=== PATIENT | female | born 1975 | race African-American/Black ===

== ENCOUNTER → 2021-01-23 08:49 | Outpatient (CLI) | payer OTHER, SELFPAY ==
--- NOTE | ~2021-01-23 | MR_ITS ---
EXAMINATION: MR shoulder LT wo con DATE: 01/23/2021 09:27 INDICATION: Left shoulder pain TECHNIQUE: Magnetic resonance imaging (MRI) of the left shoulder was performed without intravenous co ntrast. Sequences included axial PD-weighted FS FSE, coronal oblique PD-weighted FS FSE, coronal obli que T2-weighted FS FSE, sagittal PD-weighted FS FSE, and sagittal T1-weighted SE. COMPARISON: None. FINDINGS: Coracoacromial arch: The acromion undersurface is curved in morphology (type II). The coracoacromial ligament is normal. A cromioclavicular joint is normal. Rotator cuff: The supraspinatus, infraspinatus and teres minor tendons are normal. The subscapularis tendon is norm al. Normal rotator cuff muscle bulk and signal. Biceps tendon, glenoid labrum and glenohumeral cartilage: Long head of the biceps tendon is normal. Subtle linear increased signal extending laterally into the substance of the 11:00-12:00 position of the superior glenoid labrum consistent with labral tear. Re mainder of the labrum appears normal. Glenohumeral cartilage is normal. Fluid: Physiologic amount of fluid in the glenohumeral joint and biceps tendon sheath. No loose osteochondra l bodies. No abnormal fluid signal in the subacromial/subdeltoid bursa to suggest bursitis. Bones: Normal marrow signal with no edema, fracture or abnormal marrow replacing process. IMPRESSION: 1. Small SLAP tear at the superior glenoid labrum. Otherwise normal left shoulder MRI. Reviewed, dictated and finalized at location A. IMPRESSION: 1. Small SLAP tear at the superior glenoid labrum. Otherwise normal left should er MRI.
== END ==
PROVIDERS: PCP Internal Medicine; Visit Provider Nurse Practitioner
DX: S43.432A Superior glenoid labrum lesion of left shoulder, initial encounter (principal)
CPT/HCPCS: 73221

== ENCOUNTER 2021-02-23 12:19 | Emergency (ER) | payer OTHER, SELFPAY ==
[2021-02-23 12:42] VITALS: BP 146/86; PULSE 55; RESP 18; TEMP 36.9; O2SAT 100
[2021-02-23 13:16] LABS: Basophils Percent Auto 0.2 % (0.2-1.2); Eosinophils Absolute Auto 0.2 K/mm3 (0-0.3); Eosinophils Percent Auto 1.4 % (0-4.4); Hematocrit 35.6 % (37.0-47.0); Hemoglobin 11.7 g/dL (12.0-15.0); Immature Granulocyte Absolute 0.09 K/mm3 (0.00-0.031); Immature Granulocyte Percent A 0.8 % (0-0.5); Lymphocytes Percent Auto 19.3 % (18.3-44.2); Mean Corpuscular HGB Conc 32.9 g/dl (32-36); Mean Corpuscular Hemoglobin 31.5 pg (26-34); Mean Platelet Volume 8.6 fl (7.4-10.4); Monocytes Absolute Auto 0.7 K/mm3 (0.1-0.6); Monocytes Percent Auto 6.3 % (2.6-8.5); Neutrophils Absolute Auto 7.8 K/mm3 (1.3-6.7); Platelet Count Result 382 k/mm3 (150-375); Red Blood Count 3.71 M/mm3 (4.2-5.4); Red Cell Distribution Width 13.2 % (11.5-14.5); White Blood Count 10.9 K/mm3 (4.5-10.0)
[2021-02-23 13:23] LABS: Alanine Aminotransferase 13 U/L (4-35); Alkaline Phosphatase 53 U/L (38-126); Anion Gap 3 mmol/L (8-16); Aspartate Amino Transferase 22 U/L (14-36); Bilirubin,Total 0.3 mg/dL (0.2-1.3); Blood Urea Nitrogen 14 mg/dL (7-17); Calcium 9.1 mg/dL (8.4-10.2); Carbon Dioxide 27 mmol/L (22-30); Chloride 105 mmol/L (98-107); Estimated CRCL calculation 84 ml/min; Estimated Glomerular Filt Rate > 60; Glucose 101 mg/dL (65-105); Lipase 156 U/L (23-300); Potassium 4.1 mmol/L (3.4-5.0); Sodium 135 mmol/L (137-145)
[2021-02-23 13:55] LABS: Add Urine Microscopic? YES; Appearance Urine Cloudy (Clear); Bacteria Urine Trace /hpf; Bilirubin Urine Negative (Negative); Blood Urine 1+ (Negative); Color Urine Yellow (Yellow); Glucose Urine UA Negative (Negative); Ketones Urine Negative (Negative); Leukocyte Esterase Ur Trace LEU/UL (Negative); Mucus Urine Few /lpf; Nitrate Urine Negative (Negative); Protein Urine Negative (Negative); Specific Grav Ur 1.027 (1.001-1.035); Squamous Epithelial Cell Urine Moderate /hpf (Few)
--- NOTE | 2021-02-23 13:56 | PC.NURSE ---
pt. to room; didnt want to change into gown; requested she change and rational explained. Pt. responded Brett Linares
== END 2021-02-23 19:10 | disposition left against medical advice (07) ==
PROVIDERS: Emergency Provider Emergency Medicine; PCP Internal Medicine
DX: R10.9 Unspecified abdominal pain (principal)
CPT/HCPCS: 36415; 80053; 81001; 81025; 83690; 85025; 99199

== ENCOUNTER 2021-04-24 07:42 | Outpatient (CLI) | payer OTHER, SELFPAY ==
--- NOTE | ~2021-04-24 | MM_ITS ---
EXAMINATION: MM screening emil BI w melody HISTORY: Screening mammogram TECHNIQUE: Craniocaudal and mediolateral oblique 3-D tomosynthesis images were obtained and synthetic 2-D images were generated. CAD analysis was submitted and interpreted. COMPARISON: No prior mammogram is available for comparison at this institution. BREAST PARENCHYMAL COMPOSITION: The breasts are heterogeneously dense, which may obscure small masses . FINDINGS: Subtle grouped microcalcifications are noted in the upper outer quadrant of the right breas t, possibly arterial. Circumscribed 4.5 x 5.9 mm opacity in the right axillary tail, likely an intramammary lymph node; con ed compression views and targeted ultrasound are recommended. Diagnostic right mammogram with magnification views is recommended for better definition. Otherwise there is no evidence of suspicious mass, calcification, or architectural distortion to sugg est malignancy in either breast.. IMPRESSION: 1. Possible arterial calcifications and axillary tail node, upper outer quadrant right breast 2. Diagnostic right mammogram with magnification views is recommended, in addition to targeted right breast ultrasound BI-RADS Category 0: Incomplete: Needs additional imaging evaluation. Reviewed, dictated and finalized at location A. IMPRESSION: 1. Possible arterial calcifications and axillary tail node, upper outer quadran t right breast 2. Diagnostic right mammogram with magnification views is recommended, in addit ion to targeted right breast ultrasound BI-RADS Category 0: Incomplete: Needs additional imaging evaluation.
== END 2021-04-24 07:43 | disposition home or self-care (01) ==
LOC: ANHIMG 07:46
PROVIDERS: PCP Internal Medicine; Visit Provider Nurse Practitioner
DX: Z12.31 Encounter for screening mammogram for malignant neoplasm of breast (principal); R92.8 Other abnormal and inconclusive findings on diagnostic imaging of breast
CPT/HCPCS: 77063; 77067

== ENCOUNTER 2021-05-17 10:29 | Outpatient (CLI) | payer OTHER, SELFPAY ==
--- NOTE | ~2021-05-17 | MMUS_ITS ---
EXAMINATION: MM diagnostic mammo unilat RT, US breast RT limited HISTORY: Indeterminate right breast mass and calcifications on screening mammogram TECHNIQUE: Additional 3-D tomosynthesis images of the right breast were performed and synthetic 2-D i mages were generated. Magnification views are also obtained. CAD analysis was submitted and interpret ed. High resolution limited right breast ultrasound was performed. COMPARISON: 04/24/2021 FINDINGS: MAMMOGRAPHIC FINDINGS: The right breast calcifications on screening mammogram are consistent with vascular calcifications. A 7 mm oval, circumscribed mass is present in the posterior third far upper outer quadrant of the [address]. ULTRASOUND: There is an intramammary lymph node in the upper outer quadrant of the breast corresponding to the ma mmographic finding in question. IMPRESSION: 1. No mammographic or sonographic evidence of malignancy. 2. Recommend routine screening mammography in one year. BI-RADS Category 2: Benign finding(s). Reviewed, dictated and finalized at location A. IMPRESSION: 1. No mammographic or sonographic evidence of malignancy. 2. Recommend routine screening mammography in one year. BI-RADS Category 2: Benign finding(s).
== END 2021-05-17 10:30 | disposition home or self-care (01) ==
LOC: ANHIMG 10:30
PROVIDERS: PCP Internal Medicine; Visit Provider Nurse Practitioner
DX: R92.8 Other abnormal and inconclusive findings on diagnostic imaging of breast (principal)
CPT/HCPCS: 76642; 77065

== ENCOUNTER 2021-08-05 08:59 | Outpatient (CLI) | payer OTHER, SELFPAY ==
--- NOTE | ~2021-08-05 | US_ITS ---
US right upper quadrant INDICATION: Liver disease PROCEDURE: Realtime right upper abdominal ultrasound. COMPARISON: No prior studies for comparison. FINDINGS: The pancreas is normal without focal mass or pancreatic ductal dilation. Liver echotexture is normal without focal mass or intrahepatic biliary dilatation. There is normal directional flow i n the portal vein. The gallbladder is normal without stones, gallbladder wall thickening or pericholecystic fluid. Comm on bile duct measures 2 mm. No sonographic Bedoya's sign. IMPRESSION: 1: Normal limited abdominal ultrasound. Reviewed, dictated and finalized at location A.
== END 2021-08-05 09:00 | disposition home or self-care (01) ==
PROVIDERS: PCP Internal Medicine; Visit Provider Nurse Practitioner
DX: K76.9 Liver disease, unspecified (principal)
CPT/HCPCS: 76705

== ENCOUNTER → 2022-03-15 01:52 | Outpatient (CLI) | payer OTHER, MEDICAID, SELFPAY ==
[2022-03-15 11:16] LABS: Influenza A QL RT-PCR Negative (Negative); Influenza B QL RT-PCR Negative (Negative); SARS-CoV-2 RNA PCR Negative
== END ==
PROVIDERS: PCP Nurse Practitioner; Visit Provider Nurse Practitioner
DX: R50.9 Fever, unspecified (principal); Z20.822 Contact with and (suspected) exposure to COVID-19
CPT/HCPCS: 87502; C9803; U0003; U0005

== ENCOUNTER 2022-09-11 15:53 | Outpatient (CLI) | payer OTHER, SELFPAY ==
[2022-09-15 14:36] LABS: Progesterone 30.2 ng/mL (***)
== END 2022-09-11 15:54 | disposition home or self-care (01) ==
LOC: ANHLAB 15:57
PROVIDERS: PCP Nurse Practitioner; Visit Provider Student in an Organized Health Care Education/Training Program
DX: Z32.01 Encounter for pregnancy test, result positive (principal)
CPT/HCPCS: 36415; 84144; 84702

== ENCOUNTER 2022-09-13 09:17 | Outpatient (CLI) | payer OTHER, SELFPAY | END 2022-09-13 09:18 | disposition home or self-care (01) | LOC: ANHLAB 09:18 | PROVIDERS: PCP Nurse Practitioner; Visit Provider Student in an Organized Health Care Education/Training Program | DX: Z32.01 Encounter for pregnancy test, result positive (principal) | CPT/HCPCS: 36415; 84702 ==

== ENCOUNTER 2022-09-16 15:52 | Outpatient (CLI) | payer OTHER, SELFPAY ==
--- NOTE | ~2022-09-16 | US_ITS ---
EXAMINATION: US OB <=14 wk fetus w TV DATE: 09/16/2022 16:51 INDICATION: First trimester viability assessment TECHNIQUE: Real-time pelvic transabdominal and transvaginal ultrasound was performed. COMPARISON: None. FINDINGS: The uterus measures 12.5 x 7.7 x 9.9 cm. There are multiple uterine masses with the appeara nce of fibroids, the largest of which measures up to 7.3 cm in the posterior uterine body. There is an intrauterine gestational sac. A yolk sac is identified. The pole is not yet visualized, like ly due to early . The mean sac diameter measures 1.4 cm, which correlates with an estimated gestational age of 6 weeks and 2 day(s) (+/-) 4 day(s). The left ovary is not visualized however no left adnexal abnormality is seen. The right ovary measure s 3.8 x 2.6 x 1.8 cm. There is normal vascular flow in the right ovary. There is no free fluid in the pelvis. IMPRESSION: 1. Intrauterine with an estimated gestational age of 6 weeks and 2 day(s) (+/-) 4 day(s) an d an estimated delivery date of 05/10/2023 based on mean sac diameter. 2. Uterine fibroids measuring up to 7.3 cm. Reviewed, dictated and finalized at location F. S ETCHER IMPRESSION: 1. Intrauterine with an estimated gestational age of 6 weeks and 2 da y(s) (+/-) 4 day(s) and an estimated delivery date of 05/10/2023 based on mean sa c diameter. 2. Uterine fibroids measuring up to 7.3 cm.
== END 2022-09-16 15:53 | disposition home or self-care (01) ==
PROVIDERS: PCP Nurse Practitioner; Visit Provider Student in an Organized Health Care Education/Training Program
DX: O36.80X0 Pregnancy with inconclusive fetal viability, not applicable or unspecified (principal); O09.299 Supervision of pregnancy with other poor reproductive or obstetric history, unspecified trimester; Z3A.01 Less than 8 weeks gestation of pregnancy
CPT/HCPCS: 76801; 76817

== ENCOUNTER 2022-09-26 08:18 | Emergency (ER) | payer OTHER, SELFPAY ==
[2022-09-26 08:29] VITALS: BP 126/72; PULSE 78; RESP 18; TEMP 37.2; O2SAT 100
--- NOTE | 2022-09-26 08:56 | ED.PREGNANCY ---
HPI - General Chief complaint: Vaginal Bleeding Stated complaint: 10 weeks preg with vag. bleeding and cramping Time Seen by Provider: 09/26/22 08:27 History of Present Illness HPI Narrative: This is a 46-year-old female, -0-1-1, last menstrual period unknown at 7 weeks and 5 days by transvaginal ultrasound done 10 days ago, who presents to the emergency department complaining of vaginal bleeding with clots beginning approximately 3 hours ago. Patient states she was in her normal state of health when she noted cramping and passage of small clots with blood earlier this morning. She states she has had a spontaneous miscarriage before. She has no other complaints. Related Data Home Medications Medication Instructions Recorded Confirmed ulcer medication PO 08/10/21 08/10/21 Allergies Allergy/AdvReac Type Severity Reaction Status Date / Time No Known Allergies Allergy Verified 09/26/22 08:34 Review of Systems Review of Systems: CONSTITUTIONAL: Denies fever, chills, or sweats. EYES: Denies visual changes, redness, or discharge. ENT: Denies rhinorrhea, congestion, sore throat, or otalgia. CARDIOVASCULAR: Denies chest pain, palpitations, or edema. RESPIRATORY: Denies cough or dyspnea. GASTROINTESTINAL: Denies abdominal pain, nausea, vomiting, or diarrhea. GENITOURINARY: Vaginal bleeding with clots denies dysuria or hematuria. SKIN: Denies rash or itching. MUSCULOSKELETAL: Denies back pain, joint pain, or myalgia. NEUROLOGIC: Denies headache, numbness, dizziness, or weakness. PSYCHIATRIC: Denies anxiety or depression. [facility] Past Medical History Medical History Anxiety Depression GERD (gastroesophageal reflux disease) Missed x1 SLAP tear of shoulder Stomach ulcer Ureteropelvic junction (UPJ) obstruction Vaginal delivery x3 Surgical History Surgical History History of endoscopy Family History Family History Mother Hypertension Diabetes mellitus Sibling Thyroid disorder Social History Social History Smoking status: Never smoker Alcohol intake: former Alcohol use details: rare Substance use: never Exam Narrative: GENERAL: Well-development, well-nourished, appears anxious. HEAD: Normocephalic, atraumatic. EYES: PERRLA and EOMI. ENT: Nares clear, no rhinorrhea or epistaxis. Mucous membranes moist. Oropharynx without tonsillar hypertrophy exudate or other lesions. NECK: Supple. No adenopathy or masses. No carotid bruits or JVD CHEST: Clear to auscultation. No respiratory distress. No wheezes rales or rhonchi HEART: Regular rate and rhythm. No murmur heard. Normal peripheral pulses. ABDOMEN: Soft, nontender, nondistended, normal active bowel sounds. PELVIC (chaperoned by female RN Odette): Small amount of red blood noted in the vaginal vault, cervical os appears closed without active bleeding EXTREMITIES: Normal range of motion. No edema. SKIN: Warm, dry, no rash. NEURO: No focal deficits. Alert and oriented x3. PSYCH: Normal mood and affect. Course Course Emergency Course: 09:00 - Bedside ultrasound shows an intrauterine , unable to assess heart activity. 11:00 - Patient is A positive. CBC shows anemia of 11.1 which appears to be patient's baseline. Beta hCG 1700 today (7100 on 13 Sep 2022). I suspect an inevitable miscarriage. Discussed patient with OB, Dr. Palacios. Will discharge with OB follow up in 1 week. Discussed return emergency precautions including signs/symptoms of significant vaginal bleeding. Patient voiced understanding is comfortable with the plan. All questions answered to her satisfaction. Vital Signs Vital signs: Vital Signs Temperature 99 F 09/26/22 08:29 Pulse Rate 78 09/26/22 08:29 Respiratory
[2022-09-26 09:03] LABS: Basophils Absolute Auto 0.1 K/mm3 (0.0-0.1); Basophils Percent Auto 0.7 % (0.2-1.2); Eosinophils Absolute Auto 0.2 K/mm3 (0-0.3); Eosinophils Percent Auto 2.4 % (0-4.4); Hematocrit 34.3 % (37.0-47.0); Hemoglobin 11.1 g/dL (12.0-15.0); Immature Granulocyte Absolute 0.04 K/mm3 (0.00-0.031); Immature Granulocyte Percent A 0.5 % (0-0.5); Lymphocytes Percent Auto 22.6 % (18.3-44.2); Mean Corpuscular HGB Conc 32.4 g/dl (32-36); Mean Corpuscular Hemoglobin 31.7 pg (26-34); Mean Platelet Volume 8.4 fl (7.4-10.4); Monocytes Absolute Auto 0.5 K/mm3 (0.1-0.6); Monocytes Percent Auto 6.4 % (2.6-8.5); Neutrophils Absolute Auto 5.1 K/mm3 (1.3-6.7); Neutrophils Percent Auto 67.4 % (45.5-73.1); Platelet Count Result 355 k/mm3 (150-375); Red Cell Distribution Width 13.3 % (11.5-14.5); White Blood Count 7.5 K/mm3 (4.5-10.0)
[2022-09-26 09:16] LABS: Alanine Aminotransferase 27 U/L (6-35); Albumin Level 4.3 g/dL (3.5-5.1); Alkaline Phosphatase 64 U/L (38-126); Anion Gap 9 mmol/L (8-16); Aspartate Amino Transferase 24 U/L (14-36); Bilirubin,Total 0.4 mg/dL (0.2-1.3); Blood Urea Nitrogen 10 mg/dL (7-17); Calcium 8.9 mg/dL (8.4-10.2); Carbon Dioxide 23 mmol/L (22-30); Chloride 105 mmol/L (98-107); Estimated CRCL calculation 95 ml/min; Estimated Glomerular Filt Rate > 60; Glucose 91 mg/dL (65-110); Potassium 4.1 mmol/L (3.4-5.0); Sodium 137 mmol/L (137-145)
== END 2022-09-26 11:50 | disposition home or self-care (01) ==
PROVIDERS: Emergency Provider Preventive Medicine Aerospace Medicine; PCP Nurse Practitioner
DX: O03.4 Incomplete spontaneous abortion without complication (principal)
CPT/HCPCS: 36415; 80053; 84702; 85025; 85461; 86850; 86900; 86901; 99283

== ENCOUNTER 2022-09-30 17:10 | Outpatient (CLI) | payer OTHER, SELFPAY ==
[2022-09-30 17:29] LABS: Hematocrit 35.8 % (37.0-47.0); Hemoglobin 11.6 g/dL (12.0-15.0); Mean Corpuscular HGB Conc 32.4 g/dl (32-36); Mean Corpuscular Hemoglobin 31.9 pg (26-34); Mean Corpuscular Volume 98.4 fl (80-100); Mean Platelet Volume 8.2 fl (7.4-10.4); Platelet Count Result 354 k/mm3 (150-375); Red Blood Count 3.64 M/mm3 (4.2-5.4); Red Cell Distribution Width 13.2 % (11.5-14.5); White Blood Count 6.7 K/mm3 (4.5-10.0)
[2022-09-30 21:44] LABS: Beta HCG Quantitative 53.57 mIU/ML
== END 2022-09-30 17:11 | disposition home or self-care (01) ==
LOC: ANHLAB 17:13
PROVIDERS: PCP Nurse Practitioner; Visit Provider Obstetrics & Gynecology
DX: O03.9 Complete or unspecified spontaneous abortion without complication (principal); N93.9 Abnormal uterine and vaginal bleeding, unspecified; Z3A.00 Weeks of gestation of pregnancy not specified
CPT/HCPCS: 36415; 84702; 85027

== ENCOUNTER 2023-01-20 14:58 | Outpatient (CLI) | payer OTHER, SELFPAY ==
[2023-01-20 15:19] LABS: Hematocrit 36.6 % (37.0-47.0); Hemoglobin 11.8 g/dL (12.0-15.0); Mean Corpuscular HGB Conc 32.2 g/dl (32-36); Mean Corpuscular Hemoglobin 31.6 pg (26-34); Mean Corpuscular Volume 97.9 fl (80-100); Mean Platelet Volume 8.5 fl (7.4-10.4); Platelet Count Result 349 k/mm3 (150-375); Red Blood Count 3.74 M/mm3 (4.2-5.4); Red Cell Distribution Width 13.6 % (11.5-14.5); White Blood Count 6.8 K/mm3 (4.5-10.0)
== END 2023-01-20 14:59 | disposition home or self-care (01) ==
LOC: ANHLAB 14:59
PROVIDERS: PCP Nurse Practitioner; Visit Provider Obstetrics & Gynecology
DX: N92.0 Excessive and frequent menstruation with regular cycle (principal)
CPT/HCPCS: 36415; 85027